=== PATIENT | male | born 1955 | race Caucasian/White ===

== ENCOUNTER 2018-05-13 07:22 | Emergency (ER) | payer MEDICAID ==
[~2018-05-13] VITALS: Ht 180.3 cm; Wt 101.0 kg
[~2018-05-13 07:22] MED LIST: ALBU8HFA IH; CLIN30GE2 TP; SPIIN IH; [UNRECOGNIZED DRUG - OTHER] IH
[2018-05-13 07:27] VITALS: BP 115/75
[2018-05-13] MEDS ORDERED: PRED20TA PO (07:46)
[2018-05-13] MEDS ORDERED: ACYC-202 PO (07:46)
== END 2018-05-13 07:58 | disposition home or self-care (01) ==
LOC: ER 07:22
DX: G51.0 Bell's palsy (principal); F17.200 Nicotine dependence, unspecified, uncomplicated; I10 Essential (primary) hypertension; J44.9 Chronic obstructive pulmonary disease, unspecified; Z79.899 Other long term (current) drug therapy
CPT/HCPCS: 99283

== ENCOUNTER 2018-05-23 09:47 | Emergency (ER) | payer MEDICAID ==
[~2018-05-23] VITALS: Ht 182.9 cm; Wt 99.0 kg
[~2018-05-23 09:47] MED LIST changes: +ACYC-202 PO; +PRED20TA PO
[2018-05-23] MEDS ORDERED: acetaminophen 325mg tablet PO ONE (12:00)
[2018-05-23 14:19] VITALS: BP 133/86
[2018-05-23] MEDS ORDERED: OXYC-150 PO (14:57)
== END 2018-05-23 15:08 | disposition home or self-care (01) ==
LOC: ER 09:47
DX: G50.0 Trigeminal neuralgia (principal); G51.0 Bell's palsy; I10 Essential (primary) hypertension; J44.9 Chronic obstructive pulmonary disease, unspecified; Z98.890 Other specified postprocedural states; Z87.891 Personal history of nicotine dependence; Z79.2 Long term (current) use of antibiotics; Z79.899 Other long term (current) drug therapy
CPT/HCPCS: 70544; 70551; 99284

== ENCOUNTER 2019-06-14 09:13 | Emergency (ER) | payer MEDICAID, OTHER ==
[~2019-06-14] VITALS: Ht 182.9 cm; Wt 102.8 kg
[~2019-06-14 09:13] MED LIST changes: -ACYC-202 PO; +OXYC-150 PO; -PRED20TA PO
[2019-06-14] MEDS ORDERED: CYCL-1 PO (09:38)
[2019-06-14 10:08] VITALS: BP 111/72
== END 2019-06-14 10:17 | disposition home or self-care (01) ==
LOC: ER 09:13
DX: M54.5 Low back pain (principal); I10 Essential (primary) hypertension; J44.9 Chronic obstructive pulmonary disease, unspecified; F10.99 Alcohol use, unspecified with unspecified alcohol-induced disorder; F12.90 Cannabis use, unspecified, uncomplicated; Z98.890 Other specified postprocedural states; Z79.899 Other long term (current) drug therapy; Y90.9 Presence of alcohol in blood, level not specified
CPT/HCPCS: 99283

== ENCOUNTER 2021-05-03 10:11 | Day surgery (SDC) | payer OTHER ==
[~2021-05-03] VITALS: Ht 185.4 cm; Wt 104.0 kg
[2021-05-03] VITALS (12 sets, daily range): BP systolic 120–165; BP diastolic 76–99
[~2021-05-03 10:11] MED LIST changes: +CYCL-1 PO
[2021-05-03] MEDS ORDERED: MIDAZolam 1mg/ml 10ml vial IV ONE (10:40)
[2021-05-03] MEDS ORDERED: fentaNYL/PF 50MCG/1 ML 2ML syringe IV ONE (10:40)
[2021-05-03] MEDS ORDERED: normal saline 1000ml 1,000 ML IV SCH (10:40)
[2021-05-03] MEDS ORDERED: TRAZ-256 PO (10:46)
[2021-05-03] MEDS ORDERED: BISO10TA PO (10:46)
[2021-05-03] MEDS ORDERED: APIX5TAB3 PO (10:46)
[2021-05-03 11:21] LABS: ALBUMIN 3.7 G/DL (3.4-5.0); ANION GAP 6 (8-16); BLOOD UREA NITROGEN 19 MG/DL (7-18); BUN/CREATININE RATIO 16.7 (5.4-32.0); CALCIUM 8.2 MG/DL (8.5-10.1); CHLORIDE 107 MMOL/L (99-107); CREATININE 1.14 MG/DL (0.60-1.10); GLUCOSE 86 MG/DL (70-104); POTASSIUM 4.2 MMOL/L (3.5-5.1); SODIUM 138 MMOL/L (135-145); TOTAL CARBON DIOXIDE 25.1 MMOL/L (24-32); eGFR 65 ML/MIN
[2021-05-03 11:24] LABS: PARTIAL THROMBOPLASTIN TIME 32 SECONDS (22-32)
[2021-05-03 11:25] LABS: BASOPHILS % (AUTO) 0.4 % (0-1); EOSINOPHILS # (AUTO) 0.2 X10'3 (0-0.9); EOSINOPHILS % (AUTO) 2.2 % (0-6); HEMATOCRIT 45.6 % (42.0-52.0); HEMOGLOBIN 15.5 g/dl (14.0-17.9); LYMPHOCYTES # (AUTO) 1.6 X10'3 (1.1-4.8); LYMPHOCYTES % (AUTO) 19.8 % (21-51); MEAN CORPUSCULAR HEMOGLOBIN 32.8 PG (27.0-31.0); MEAN CORPUSCULAR VOLUME 96.5 FL (78-98); MEAN PLATELET VOLUME 10.3 FL (7.4-10.4); MONOCYTES # (AUTO) 0.5 X10'3 (0-0.9); MONOCYTES % (AUTO) 5.8 % (2-12); NEUTROPHILS # (AUTO) 5.8 X10'3 (1.8-7.7); NEUTROPHILS % (AUTO) 71.8 % (42-75); PLATELET COUNT 149 X10'3 (140-440); RED BLOOD COUNT 4.72 X10'6 (4.70-6.10); WHITE BLOOD COUNT 8.1 X10'3 (4.5-11.0)
--- NOTE | 2021-05-03 14:10 | NUR ---
Dr. Medel had ordered pt to decrease bisoprolol medication. Pt states he already only takes "1/2 a table" and is not sure the strength of each tablet in the bottle. Pt was instructed to contact Dr. Medel's office when he gets home to confirm medication strength and how is should be continued. Pt verbalized his understanding. I also contacted Dr. Medel's office and spoke with Yasmin and she is relaying this message Candida RN.
== END 2021-05-03 14:15 | disposition home or self-care (01) ==
LOC: SSTAY O 10:11
PROVIDERS: ATTEND Internal Medicine Interventional Cardiology
DX: I48.91 Unspecified atrial fibrillation (principal); J44.9 Chronic obstructive pulmonary disease, unspecified; I11.9 Hypertensive heart disease without heart failure; I34.0 Nonrheumatic mitral (valve) insufficiency; Z79.899 Other long term (current) drug therapy
CPT/HCPCS: 36415; 80048; 85025; 85610; 85730; 92960; 93005; 94760; 94799; J2250